=== PATIENT | male | born 1955 | race Caucasian/White ===

== ENCOUNTER 2017-02-08 18:41 | Emergency (ER) | payer OTHER ==
[~2017-02-08 18:41] MED LIST: AMARYL1 MG PO; AMITRIPTYLINE H50 MG PO; ASPIRIN EC325 MG PO; AUGMENTIN 875-1 EACH PO; CARDIZEM CD120 MG PO; COUMADIN5 MG PO; FENOFIBRATE160 MG PO; LANOXIN250 MCG PO; LIPITOR40 MG PO; LOVENOX80 MG/0.8 SQ; METOPROLOL TART25 MG PO; OMEPRAZOLE20 MG PO; PROAIR HFA8.5 GM IH; TRAZODONE HCL150 MG PO
== END 2017-02-08 23:20 | disposition short-term general hospital (02) ==
LOC: ER 18:41
DX: K85.90 Acute pancreatitis without necrosis or infection, unspecified (principal); N39.0 Urinary tract infection, site not specified; R53.1 Weakness; C76.2 Malignant neoplasm of abdomen; I25.2 Old myocardial infarction; I10 Essential (primary) hypertension; E78.5 Hyperlipidemia, unspecified; J44.9 Chronic obstructive pulmonary disease, unspecified; F17.210 Nicotine dependence, cigarettes, uncomplicated; Z79.01 Long term (current) use of anticoagulants; Z79.82 Long term (current) use of aspirin; Z79.899 Other long term (current) drug therapy
CPT/HCPCS: 36415; 96361; 96365; 96375; J0696